=== PATIENT | male | born 1970 | race Asian ===

== ENCOUNTER 2019-05-08 10:10 | Emergency (ER) | payer OTHER ==
[~2019-05-08] VITALS: Ht 170.2 cm; Wt 74.8 kg
--- NOTE | 2019-05-08 10:30 | NUR ---
ED Nurse Note: PT WALKED IN TO ER TODAY FROM HOME. AOX4. PT C/O LEFT WRIST PAIN, 03/07, X 1 HOUR AGO AFTER FALLING OFF OF HIS SKATEBOARD. PT DENIES HEAD TRAUMA. FULL ROM OF WRIST AND DIGITS, CIRCULATION AND SENSATION INTACT, CAP REFILL <2 SECONDS. PT STATES PAIN WORSENS WITH MOVEMENT OF FINGERS. SWELLING NOTED TO LEFT WRIST BUT NO OBVIOUS DEFORMITY.
[2019-05-08 10:32] VITALS: BP 116/74
--- NOTE | 2019-05-08 10:57 | NUR ---
ED Nurse Note: XRAY AT BEDSIDE.
[2019-05-08] MEDS ORDERED: NORCO 5-325 TA1 EACH ORAL (12:07)
[2019-05-08] MEDS ORDERED: IBUPROFEN600 MG ORAL (12:07)
[2019-05-08 12:15] VITALS: BP 116/74
--- NOTE | 2019-05-08 12:15 | NUR ---
ER DISCHARGE NOTE: Patient is cleared to be discharged per ERMD, pt is aox4, on room air, with stable vital signs. pt was given dc and prescription instructions, pt was able to verbalize understanding, pt id band removed. pt is able to ambulate with steady gait. pt took all belongings. splint applied on the affected site
--- NOTE | 2019-05-08 14:32 | Diagnostic Imaging Report ---
Clinical Indication:Trauma Technique: 3 views of the wrist Comparison: None Findings: Small osseous fragment projects posterior to the proximal intercarpal joint on the lateral view, not seen on other views. This appears rounded. No other evidence of acute fracture. No dislocation. The joint spaces are preserved. Impression: Small osseous fragment posterior to the proximal intercarpal, could represent a triquetral fracture fragment, age-indeterminate. Correlate with clinical findings Findings discussed by phone with Dr. Salmon in the emergency room at the time of interpretation
--- NOTE | 2019-05-08 18:01 | Emergency Room Report ---
History of Present Illness General Chief Complaint: Upper Extremity Injury Source: Patient Present Illness HPI Patient states that he was skating. He fell on his left wrist. He is complaining of left wrist pain and swelling. States that he was wearing his watch and he thinks that his could cause some bruising and hematoma on his wrist. He seems to have swelling and hematoma over the dorsal aspect of his left wrist. He complains of pain limited range of motion. Denies any other injuries. Dates that about a month ago he had fallen and hurt his hand and wrist. States that that still hurts. No other injuries are noted. Denies any numbness tingling or weakness. No other modifying factors. No other associated signs and symptoms. No other complaints were noted. Symptoms noted to be moderate. Allergies: Coded Allergies: ASPIRIN (Verified Allergy, Severe, Rash, 05/08/19) Patient History Past Medical History: none Past Surgical History: none Pertinent Family History: none Social History: Denies: smoking, alcohol use, drug use Reviewed Nursing Documentation: PMH: Agreed; PSxH: Agreed Nursing Documentation-PMH Past Medical History: No History, Except For Review of Systems All Other Systems: negative except mentioned in HPI Physical Exam Vital Signs Date Time Temp Pulse Resp B/P (MAP) Pulse Ox O2 Delivery O2 Flow Rate FiO2 05/08/19 10:22 98.1 65 20 113/70 (84) 99 Room Air Sp02 EP Interpretation: reviewed, normal General Appearance: normal inspection, well appearing, no apparent distress, alert Head: atraumatic Eyes: bilateral eye normal inspection ENT: hearing grossly normal, normal voice Neck: full range of motion, supple Respiratory: no respiratory distress Cardiovascular #1: no edema Gastrointestinal: non tender, soft Genitourinary: no CVA tenderness Musculoskeletal: back normal, swelling - left wrist dorsum near scaphoid Neurologic: normal inspection, alert, responsive, speech normal Psychiatric: normal inspection, judgement/insight normal, mood/affect normal Skin: no rash Procedures Splinting Splinting : Consent: Verbal Location: left wrist Pre-Made Type: velcro Splint: thumb spica Pre-Proc Neuro Vasc Exam: normal Post-Proc Neuro Vasc Exam: normal Patient Tolerated: Well Complications: None Medical Decision Making Diagnostic Impression: Primary Impression: Wrist pain, left ER Course Patient presents emergency department today complaining of fall onto the left wrist. Differential diagnosis include fracture dislocation versus strain. Given patient's presentation I felt that x-rays are indicated. Per radiology x- ray shows a possible triquetral fracture. However patient swelling is most clos to the scaphoide . This information was conveyed to the patient. Thumb spica was applied. Patient was advised to follow-up with orthopedics and repeat x-rays in about 1 week to rule out any hairline fracture or injury to the scaphoid. Patient voiced understanding. Patient is advised to follow up with primary doctor in 2-3 days and return the emergency room for any worsening symptoms and as needed. Other X-Ray Diagnostic Results Other X-Ray Diagnostic Results : X-Ray ordered: left wrist # of Views/Limited Vs Complete: 2 View Indication: Pain EP Interpretation: No Impression: Other - Impression: Small osseous fragment posterior to the proximal intercarpal Last Vital Signs Date Time Temp Pulse Resp B/P (MAP) Pulse Ox O2 Delivery O2 Flow Rate FiO2 05/08/19 12:15 98.2 62 16 116/74 100 Room Air Status: improved Disposition: HOME, SELF-CARE Condition: Stable Scripts Ibuprofen* (MOTRIN*) 600 Mg Tablet 600 MG ORAL Q8H PRN for For Pain, #30 TAB 0 Refills Prov: Chip Salmon MD 05/08/19 Hydrocodone Bit/Acetaminophen 5-325* (NORCO 5-325*) 1 Each Tablet 1 TAB ORAL Q6H PRN for For Pain, #20 TAB 0 Refills Prov: Chip Salmon MD 05/08/19 Patient Instructions: Cast or Splint Care, [id number], Wrist Pain, Easy-to- Read Chip Salmon MD May 08, 2019 18:01
== END 2019-05-08 12:15 | disposition home or self-care (01) ==
LOC: EMR 11:05
DX: M25.532 Pain in left wrist (principal); Z88.6 Allergy status to analgesic agent
CPT/HCPCS: 73110; Z7502; 29125; 99283

== ENCOUNTER 2019-07-24 12:33 | Emergency (ER) | payer OTHER ==
[~2019-07-24] VITALS: Ht 170.2 cm; Wt 79.4 kg
[~2019-07-24 12:33] MED LIST: IBUPROFEN600 MG ORAL; NORCO 5-325 TA1 EACH ORAL
--- NOTE | 2019-07-24 12:59 | NUR ---
ED Nurse Note: Pt brought in by wheelchair with from home. Pt c/o R ankle and foot pain. Pt fell on skateboard 30 minutes ago and injured foot. Pt bilat post tib pulses 3+. Denies numbness, tingling. No acute distress at this time.
[2019-07-24] MEDS ORDERED: Ketorolac 30mg Inj IM ONE (13:15)
[2019-07-24] MEDS ORDERED: HYDROcodone/Acetamin 5/325 tab ORAL ONE (13:45)
--- NOTE | 2019-07-24 14:24 | Emergency Room Report ---
History of Present Illness General Chief Complaint: Lower Extremity Injury Source: Patient Present Illness HPI 49-year-old male with history of complaining of a 10 out of 10 pain right ankle after falling off of a skateboard earlier today. Obvious deformity and fracture of the right ankle noted however this is not an open fracture. Patient has good pulses, and no motor or sensory deficits noted. Patient is neurovascularly intact. Denies all other injuries, calf tenderness, head injury , loss of consciousness, chest pain, shortness of breath, palpitation, and other associated symptoms. Has not taken medication for symptom relief. Allergies: Coded Allergies: ASPIRIN (Verified Allergy, Severe, Rash, 05/08/19) Patient History Past Medical History: see triage record Past Surgical History: unable to obtain Pertinent Family History: none Immunizations: UTD Reviewed Nursing Documentation: PMH: Agreed; PSxH: Agreed Nursing Documentation-PMH Past Medical History: No Stated History Review of Systems All Other Systems: negative except mentioned in HPI Physical Exam Vital Signs Date Time Temp Pulse Resp B/P (MAP) Pulse Ox O2 Delivery O2 Flow Rate FiO2 07/24/19 12:48 97.5 62 18 106/66 (79) 99 Room Air Sp02 EP Interpretation: reviewed, normal General Appearance: no apparent distress, alert, GCS 15, non-toxic Head: normocephalic, atraumatic Eyes: bilateral eye normal inspection, bilateral eye PERRL ENT: hearing grossly normal, normal pharynx, no angioedema, normal voice Neck: full range of motion, supple/symm/no masses Respiratory: chest non-tender, lungs clear, normal breath sounds, no rhonchi, no wheezing, speaking full sentences Cardiovascular #1: regular rate, rhythm, no edema, no murmur, normal capillary refill Cardiovascular #2: 2+ dorsalis pedis (R), 2+ dorsalis pedis (L) Gastrointestinal: normal bowel sounds, non tender, soft, non-distended, no guarding, no rebound Genitourinary: no CVA tenderness, no vertebral tenderness Musculoskeletal: back normal, decreased range of motion, no calf tenderness, gait/station normal, non-tender, tender - Right ankle Neurologic: alert, motor strength/tone normal, oriented x3, sensory intact, responsive, speech normal Psychiatric: judgement/insight normal, memory normal, mood/affect normal, no suicidal/homicidal ideation Skin: no rash Lymphatic: no adenopathy Procedures Splinting Splinting : Consent: Verbal Location: Right ankle Splint: poserior short Pre-Proc Neuro Vasc Exam: normal Post-Proc Neuro Vasc Exam: normal Patient Tolerated: Well Complications: None Progress Ankle post and crutches given Medical Decision Making PA Attestation All my diagnosis and treatment plans were reviewed ad discussed with my supervising physician Dr. Marquez Diagnostic Impression: Primary Impression: Fracture of fibula, distal, right, closed Additional Impression: Closed fracture of right distal tibia ER Course 49-year-old male with history of complaining of a 10 out of 10 pain right ankle after falling off of a skateboard earlier today. Obvious deformity and fracture of the right ankle noted however this is not an open fracture. Patient has good pulses, and no motor or sensory deficits noted. Patient is neurovascularly intact. Denies all other injuries, calf tenderness, head injury , loss of consciousness, chest pain, shortness of breath, palpitation, and other associated symptoms. Has not taken medication for symptom relief. Ddx considered but are not limited to: ankle sprain, ankle strain, ankle fracture, ankle contusion Vital signs: are WNL, pt. is afebrile H&PE are most consistent with: Fracture of right distal fibula, fracture of right distal tibia ORDERS: ankle x-ray, [place], ibuprofen 800 ED INTERVENTIONS: toradol, norco Simultaneous splinting and the reduction of the ankle was performed, I reduced the ankle as my ER network operations technician Warren applied a posterior splint, then an ankle boot was given to patient patient ambulated out of the emergency room with crutches. Patient and patient's made an appointment with aviation medicine specialist for this afternoon, 60 cc of images with them, and refused to get the postreduction x-rays as they were going to aviation medicine specialist office right away. Patient was neurovascularly intact upon discharge. DISCHARGE: At this time pt. is stable for d/c to home. Will provide printed patient care instructions, and any necessary prescriptions. Care plan and follow up instructions have been discussed with the patient prior to discharge. Patient to return to emergency room immediately if worsening symptoms such as scalp tenderness, extreme pain, and neurovascular deficits Other X-Ray Diagnostic Results Other X-Ray Diagnostic Results : X-Ray ordered: right ankle # of Views/Limited Vs Complete: 3 View Indication: Pain EP Interpretation: Yes PA Xray: Interpretation reviewed, by supervising MD, and agrees with findings. Interpretation: other - displace fx right distal fibula, and avulsion fx right distal tibia Impression: Other - displace fx right distal fibula, and avulsion fx right distal tibia Electronically Signed by: Jojo Peters PA-C Last Vital Signs Date Time Temp Pulse Resp B/P (MAP) Pulse Ox O2 Delivery O2 Flow Rate FiO2 07/24/19 12:48 97.5 62 18 106/66 (79) 99 Room Air Disposition: HOME, SELF-CARE Condition: Stable Scripts Ibuprofen (Ibu) 800 Mg Tablet 800 MG PO TID, #30 TAB Prov: Jojo Isabel 07/24/19 Hydrocodone Bit/Acetaminophen 5-325* (NORCO 5-325*) 1 Each Tablet 1 TAB ORAL Q8HR PRN for For Pain, #15 TAB 0 Refills Prov: Jojo Isabel 07/24/19 Referrals: [facility],REFERR[facility] (PCP) Patient Instructions: Ankle Fracture With [facility] Additional Instructions: Follow-up with aviation medicine specialist, take medication as directed, if worsening symptoms return to the emergency room Jojo Isabel Jul 24, 2019 14:24
--- NOTE | 2019-07-24 14:25 | NUR ---
ED Nurse Note: splint on Rt foot and a pair of crutches provided at bedside. education given. pt verbalized understanding.
--- NOTE | 2019-07-24 14:25 | Diagnostic Imaging Report ---
Indication: Pain right ankle Comparison: None Findings: 3 views of the right ankle obtained. There is an acute fracture of the lateral malleolus. There is an acute fracture of the medial malleolus. There is subluxation of the tibiotalar joint with relative the lateral displacement of the talus with respect to the tibia. Soft tissue swelling noted. Impression: Acute bimalleolar unstable fracture of the ankle. Moderate lateral displacement.
[2019-07-24] MEDS ORDERED: NORCO 5-325 TA1 EACH ORAL (14:26)
[2019-07-24] MEDS ORDERED: IBU800 MG PO (14:26)
--- NOTE | 2019-07-24 14:26 | NUR ---
ED Nurse Note: called radiology for CD.
[2019-07-24 14:58] VITALS: BP 111/79
--- NOTE | 2019-07-24 14:59 | NUR ---
ED Nurse Note: Pt cleared by health care Provider for discharge after splint on Rt foot and crutches provided. DC instructions/prescription was given and explained to pt and the and verbalized understanding of teachings. All medical deviecs such as ID band removed. Pt is AAO x4, ambulatory with crutches and left with all personal belongings.
== END 2019-07-24 15:00 | disposition home or self-care (01) ==
LOC: EMR 13:10
DX: S82.61XA Displaced fracture of lateral malleolus of right fibula, initial encounter for closed fracture (principal); S82.391A Other fracture of lower end of right tibia, initial encounter for closed fracture; W17.89XA Other fall from one level to another, initial encounter; Y93.51 Activity, roller skating (inline) and skateboarding; Y92.9 Unspecified place or not applicable; Z88.6 Allergy status to analgesic agent
CPT/HCPCS: 29515; 73610; 96372; J1885; Z7502; 99283